=== PATIENT | male | born 1985 | race Caucasian/White ===

== ENCOUNTER 2016-08-06 20:08 | Emergency (ER) | payer SELFPAY ==
[~2016-08-06] VITALS: Ht 172.7 cm; Wt 65.8 kg
--- NOTE | 2016-08-06 20:23 | ED Cough/URI ---
General Chief Complaint: Respiratory Problems Stated Complaint: SOA Source: patient, family Exam Limitations: no limitations History of Present Illness Time seen by provider: 20:21 Initial Comments To ER accompanied by his mother who does most of the speaking for him. I'm able to elicit from the patient that he has shortness of breath that began yesterday. Yesterday was his 31th birthday and while at the table opening his birthday present he developed shortness of breath and tingling of his nose, top of his mouth. Those symptoms persist and today he has had weakness all over he states. No fevers or chills. No cough. He states that he smokes about a half a pack a day, has recently reduced his alcohol intake to only a few beers per day but does also smoke marijuana daily. Timing/Duration: constant Severity/Quality: no cough Associated Symptoms: shortness of breath Allergies and Home Medications Allergies Coded Allergies: No Known Drug Allergies (Unverified , 08/16/11) Home Medications No Active Prescriptions or Reported Meds Constitutional: see HPI EENTM: see HPI Respiratory: see HPI, cough Cardiovascular: no symptoms reported Genitourinary: no symptoms reported Musculoskeletal: no symptoms reported Skin: no symptoms reported Hematologic/Lymphatic: No Symptoms Reported Immunological/Allergic: no symptoms reported Past [place]-Bfkhpw-Gwkcif Hx Patient Social History Recent Foreign Travel: No Contact w/Someone Who Travel: No Seasonal Allergies Seasonal Allergies: No Surgeries HX Surgeries: Yes (GENITAL SURGERY) Respiratory Hx Respiratory Disorders: No Cardiovascular Hx Cardiac Disorders: No Neurological Hx Neurological Disorders: No Reproductive System Hx Reproductive Disorders: No Sexually Transmitted Disease: No Genitourinary Hx Genitourinary Disorders: No Gastrointestinal Hx Gastrointestinal Disorders: No Musculoskeletal Hx Musculoskeletal Disorders: No Endocrine Hx Endocrine Disorders: No HEENT HX ENT Disorders: No Cancer Hx Cancer: No Psychosocial Hx Psychiatric Problems: No Integumentary HX Skin/Integumentary Disorder: No Blood Transfusions Hx Blood Disorders: No Physical Exam Vital Signs Vital Sign - Last 12Hours 08/06/16 20:21 Temp 98.7 Pulse 66 Resp 18 B/P (MAP) 144/96 Pulse Ox 100 O2 Delivery Room Air Capillary Refill : General Appearance: WD/WN, no apparent distress Eyes: Bilateral Eye EOMI, Bilateral Eye Normal Inspection, Bilateral Eye PERRL HEENT: PERRL/EOMI, normal ENT inspection Neck: non-tender, full range of motion Respiratory: no respiratory distress, no accessory muscle use Cardiovascular: regular rate, rhythm Gastrointestinal: normal bowel sounds, non tender, soft Extremities: normal range of motion, non-tender Neurologic/Psychiatric: alert, normal mood/affect, oriented x 3 Skin: normal color, warm/dry Progress/Results/Core Measures Results/Orders Lab Results Laboratory Tests Test 08/06/16 20:33 Range/Units White Blood Count 7.2 4.3-11.0 10^3/uL Red Blood Count 4.91 4.35-5.85 10^6/uL Hemoglobin 14.5 13.3-17.7 G/DL Hematocrit 42 40-54 % Mean Corpuscular Volume 86 80-99 FL Mean Corpuscular Hemoglobin 30 25-34 PG Mean Corpuscular Hemoglobin Concent 34 32-36 G/DL Red Cell Distribution Width 12.9 10.0-14.5 % Platelet Count 213 130-400 10^3/uL Mean Platelet Volume 10.7 H 7.4-10.4 FL Neutrophils (%) (Auto) 40 L 42-75 % Lymphocytes (%) (Auto) 49 H 12-44 % Monocytes (%) (Auto) 7 0-12 % Eosinophils (%) (Auto) 4 0-10 % Basophils (%) (Auto) 1 0-10 % Neutrophils # (Auto) 2.9 1.8-7.8 X 10^3 Lymphocytes # (Auto) 3.5 1.0-4.0 X 10^3 Monocytes # (Auto) 0.5 0.0-1.0 X 10^3 Eosinophils # (Auto) 0.3 0.0-0.3 10^3/uL Basophils # (Auto) 0.1 0.0-0.1 10^3/uL D-Dimer 0.34 0.00-0.49 UG/ML My Orders Orders - FRANCISCO JAEGER APRN Fibrin Degradation Products (08/06/16 20:20) Cbc With Automated Diff (08/06/16 20:20) Comprehensive Metabolic Panel (08/06/16 20:20) Troponin I (08/06/16 20:20) Ekg Tracing (08/06/16 20:20) Continuous Ekg Monitoring (08/06/16 20:20) Chest Pa/Lat (2 View) (08/06/16 20:20) Alprazolam Tablet (Xanax Tablet) (08/06/16 20:30) Vital Signs/I&O Vital Sign - Last 12Hours 08/06/16 20:21 Temp 98.7 Pulse 66 Resp 18 B/P (MAP) 144/96 Pulse Ox 100 O2 Delivery Room Air Departure Impression Impression: Primary Impression: Shortness of breath Disposition: HOME, SELF-CARE Condition: Stable Departure-Patient Inst. Decision time for Depature: 21:03 Referrals: NO,LOCAL PHYSICIAN (PCP/Family) Primary Care Physician Patient Instructions: Shortness of Breath (Dyspnea) Add. Discharge Instructions: 1. Follow-up with your regular doctor next week. If you do not have one a list is been provided for you 2. Return to the emergency room for any fevers, cough or worsening symptoms All discharge instructions reviewed with patient and/or family. Voiced understanding. Scripts No Active Prescriptions or Reported Meds Work/School Note: Local Medical Staff Listing FRANCISCO JAEGER APRN Aug 06, 2016 20:23
[2016-08-06] MEDS ORDERED: ALPRAZolam 0.5 MG (XANAX) TAB PO SCH (20:30)
[2016-08-06 20:41] LABS: BASOPHILS # (AUTO) 0.1 10^3/uL (0.0-0.1); BASOPHILS % (AUTO) 1 % (0-10); EOSINOPHILS # (AUTO) 0.3 10^3/uL (0.0-0.3); EOSINOPHILS % (AUTO) 4 % (0-10); LYMPHOCYTES # (AUTO) 3.5 X 10^3 (1.0-4.0); LYMPHOCYTES % (AUTO) 49 % (12-44); MEAN CORPUSCULAR HEMOGLOBIN 30 PG (25-34); MEAN CORPUSCULAR HGB CONC 34 G/DL (32-36); MEAN CORPUSCULAR VOLUME 86 FL (80-99); MEAN PLATELET VOLUME 10.7 FL (7.4-10.4); MONOCYTES # (AUTO) 0.5 X 10^3 (0.0-1.0); MONOCYTES % (AUTO) 7 % (0-12); NEUTROPHILS # (AUTO) 2.9 X 10^3 (1.8-7.8); NEUTROPHILS % (AUTO) 40 % (42-75); PLATELET COUNT 213 10^3/uL (130-400); RED BLOOD COUNT 4.91 10^6/uL (4.35-5.85); RED CELL DISTRIBUTION WIDTH 12.9 % (10.0-14.5); WHITE BLOOD COUNT 7.2 10^3/uL (4.3-11.0)
--- NOTE | 2016-08-06 20:47 | Diagnostic Imaging Report ---
PA and lateral chest. INDICATION: Shortness of breath. Comparison is made with prior from August 16, 2011 FINDINGS: Lungs demonstrate no focal pulmonary infiltrates or evidence of an effusion. There is no pneumothorax. Heart size and mediastinal contours are appropriate. Pulmonary vascularity appears within normal limits. No acute osseous abnormality is demonstrated. IMPRESSION: No radiographic evidence of an acute cardiopulmonary process. Dictated by: Dictated on workstation # [id number]
[2016-08-06 21:05] LABS: ALANINE AMINOTRANSFERASE 23 U/L (0-55); ALBUMIN 4.1 G/DL (3.2-4.5); ANION GAP 8 MMOL/L (5-14); ASPARTATE AMINO TRANSFERASE 22 U/L (5-34); BILIRUBIN,TOTAL 0.3 MG/DL (0.1-1.0); BLOOD UREA NITROGEN 11 MG/DL (7-18); BUN/CREATININE RATIO 12; CARBON DIOXIDE 24 MMOL/L (21-32); CHLORIDE 109 MMOL/L (98-107); CREATININE SERUM 0.95 MG/DL (0.60-1.30); GFR ESTIMATED > 60; GLUCOSE 105 MG/DL (70-105); POTASSIUM 3.5 MMOL/L (3.6-5.0); SODIUM 141 MMOL/L (135-145); TOTAL PROTEIN 6.6 G/DL (6.4-8.2)
[2016-08-06 21:11] LABS: TROPONIN I < 0.30 NG/ML (<0.30)
[2016-08-06 21:27] VITALS: BP 127/81
--- OUTSIDE RECORDS SUMMARY | 2016-08-09 10:49 | XMS REPORT ---
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 Info Not Available Non Drug Allergy Problems Problem Type Condition Code Onset Dates Condition Status Assessment Strep pharyngitis J02.0 Active Medications Medication Code System Code Instructions Start Date End Date Status Dosage Amoxicillin [facility] [address]-98 500 MG Orally every 12 hrs Apr 22, 2015 May 02, 2015 1 tablet Procedures Procedure Coding System Code Date Office Visit, Est Pt., Level 3 CPT-4 05135 Apr 22, 2015 STREP A ASSAY W/OPTIC CPT-4 16538 Apr 22, 2015 Vital Signs Date/Time: Apr 22, 2015 Temperature 98 F Weight 175 lbs Height 71 in BMI 24.40 Index Blood Pressure Diastolic 78 mmHg Blood Pressure Systolic 128 mmHg Cardiac Monitoring Heart Rate 100 bpm Results Name Result Date Reference Range Unit Abnormality Flag STREP A (IN HOUSE) ----STREP A positive [id number] ----Control + [id number] ----Lot # [id number] ----Exp date 09/12/1620150422 Summary Purpose [employer] Submission
--- OUTSIDE RECORDS SUMMARY | 2016-08-09 10:49 | XMS REPORT | Continuity of Care Document ---
Author Author [facility] Organization [facility] Address Unknown Phone Unavailable Allergies Active Description Code Type Severity Reaction Onset Reported/Identified Relationship to Patient Clinical Status Yes No Known Drug Allergies [id number] Drug Allergy Unknown N/ A 08/16/2011 Medications Problems Date Dx Coded Attending Type Code Diagnosis Diagnosed By 08/16/2011 Ot 850.5 08/16/2011 Ot 919.0 08/16/2011 Ot 924.8 08/16/2011 Ot 959.01 08/16/2011 Ot E000.8 08/16/2011 Ot E815.2 06/09/2015 FRANCISCO JAEGER APRN Ot S63.501A 06/09/2015 FRANCISCO JAEGER APRN Ot W01.0XXA 06/09/2015 FRANCISCO JAEGER APRN Ot Y92.511 06/09/2015 FRANCISCO JAEGER APRN Ot Y99.8 Procedures Results Test Result Range Complete blood count (CBC) with automated white blood cell (WBC) differential - 08/06/16 20:33 Blood leukocytes automated count (number/volume) 7.2 10*3/ uL 4.3-11.0 Blood erythrocytes automated count (number/volume) 4.91 10*6 /uL 4.35-5.85 Venous blood hemoglobin measurement (mass/volume) 14.5 g/dL 13.3-17.7 Blood hematocrit (volume fraction) 42 % 40-54 Automated erythrocyte mean corpuscular volume 86 [foz_us] 80-99 Automated erythrocyte mean corpuscular hemoglobin (mass per erythrocyte) 30 pg 25-34 Automated erythrocyte mean corpuscular hemoglobin concentration measurement ( mass/volume) 34 g/dL 32-36 Automated erythrocyte distribution width ratio 12.9 % 10.0-14.5 Automated blood platelet count (count/volume) 213 10*3/uL 130-400 Automated blood platelet mean volume measurement 10.7 [foz_ us] 7.4-10.4 Automated blood neutrophils/100 leukocytes 40 % 42-75 Automated blood lymphocytes/100 leukocytes 49 % 12-44 Blood monocytes/100 leukocytes 7 % 0-12 Automated blood eosinophils/100 leukocytes 4 % 0-10 Automated blood basophils/100 leukocytes 1 % 0-10 Blood neutrophils automated count (number/volume) 2.9 10*3 1.8-7.8 Blood lymphocytes automated count (number/volume) 3.5 10*3 1.0-4.0 Blood monocytes automated count (number/volume) 0.5 10*3 0.0-1.0 Automated eosinophil count 0.3 10*3/uL 0.0-0.3 Automated blood basophil count (count/volume) 0.1 10*3/uL 0.0-0.1 Fibrin D-dimer FEU measurement in platelet poor plasma (mass/volume) - 20:33 Fibrin D-dimer FEU measurement in platelet poor plasma (mass/volume) 0.34 ug/mL 0.00-0.49 Comprehensive metabolic panel - 08/06/16 20:33 Serum or plasma sodium measurement (moles/volume) 141 mmol/ L 135-145 Serum or plasma potassium measurement (moles/volume) 3.5 mmol/L 3.6-5.0 Serum or plasma chloride measurement (moles/volume) 109 mmol /L 98-107 Carbon dioxide 24 mmol/L 21-32 Serum or plasma anion gap determination (moles/volume) 8 mmol/L 5-14 Serum or plasma urea nitrogen measurement (mass/volume) 11 mg/dL 7-18 Serum or plasma creatinine measurement (mass/volume) 0.95 mg /dL 0.60-1.30 Serum or plasma urea nitrogen/creatinine mass ratio 12 NRG Serum or plasma creatinine measurement with calculation of estimated glomerular filtration rate > NRG Serum or plasma glucose measurement (mass/volume) 105 mg/dL 70-105 Serum or plasma calcium measurement (mass/volume) 9.0 mg/dL 8.5-10.1 Serum or plasma total bilirubin measurement (mass/volume) 0.3 mg/dL 0.1-1.0 Serum or plasma alkaline phosphatase measurement (enzymatic activity/volume) 76 U/L 40-136 Serum or plasma aspartate aminotransferase measurement (enzymatic activity/ volume) 22 U/L 5-34 Serum or plasma alanine aminotransferase measurement (enzymatic activity/volume ) 23 U/L 0-55 Serum or plasma protein measurement (mass/volume) 6.6 g/dL 6.4-8.2 Serum or plasma albumin measurement (mass/volume) 4.1 g/dL 3.2-4.5 Serum or plasma troponin i.cardiac measurement (mass/volume) - 08/06/16 20:33 Serum or plasma troponin i.cardiac measurement (mass/volume) < ng/mL <0.30 Encounters ACCT No. Visit Date/Time Discharge Status Pt. Type Provider Facility Loc./Unit Complaint [id number] 06/09/2015 15:26:00 2015 17:18:00 DIS Emergency FRANCISCO JAEGER APRN [facility] ER [id number] 08/06/2016 20:42:00 Document Registration [id number] 08/16/2011 20:46:00 Document Registration
== END 2016-08-06 21:27 | disposition home or self-care (01) ==
LOC: EDUNIT# 20:08 → ER 20:10
DX: R06.02 Shortness of breath (principal); R53.1 Weakness; F17.210 Nicotine dependence, cigarettes, uncomplicated; F12.10 Cannabis abuse, uncomplicated
CPT/HCPCS: 36415; 71020; 80053; 84484; 85025; 85379; 93005

== ENCOUNTER 2019-03-27 08:18 | Emergency (ER) | payer SELFPAY ==
[~2019-03-27] VITALS: Ht 175 cm; Wt 77.0 kg
[2019-03-27] MEDS ORDERED: NS IV 1000 ML 1,000 ML IV SCH (11:19)
[2019-03-27] MEDS ORDERED: fentaNYL INJECTION 100 MCG/2 ML AMP ONE (11:22)
[2019-03-27 11:27] LABS: BASOPHILS % (AUTO) 0 % (0-10); EOSINOPHILS # (AUTO) 0.1 10^3/uL (0.0-0.3); EOSINOPHILS % (AUTO) 1 % (0-10); HEMATOCRIT 41 % (40-54); HEMOGLOBIN 13.8 G/DL (13.3-17.7); LYMPHOCYTES % (AUTO) 17 % (12-44); MEAN CORPUSCULAR HEMOGLOBIN 29 PG (25-34); MEAN CORPUSCULAR HGB CONC 34 G/DL (32-36); MEAN CORPUSCULAR VOLUME 86 FL (80-99); MEAN PLATELET VOLUME 9.9 FL (7.4-10.4); MONOCYTES # (AUTO) 0.7 X 10^3 (0.0-1.0); MONOCYTES % (AUTO) 6 % (0-12); NEUTROPHILS # (AUTO) 9.1 X 10^3 (1.8-7.8); NEUTROPHILS % (AUTO) 77 % (42-75); PLATELET COUNT 257 10^3/uL (130-400); RED CELL DISTRIBUTION WIDTH 13.5 % (10.0-14.5); WHITE BLOOD COUNT 11.8 10^3/uL (4.3-11.0)
--- NOTE | 2019-03-27 11:28 | ED Lower Extremity ---
General Chief Complaint: Lower Extremity Stated Complaint: L AND R ANKLE INJ Nursing Triage Note: pt states fall from garage roof, approx 8-9 feet, states landed on feet. complaint of genie foot pain. swelling noted left foot/ankle area. denies LOC, dizziness. denies knee pain. pt unable to walk. Nursing Sepsis Screen: No Definite Risk History of Present Illness Date Seen by Provider: Mar 27, 2019 Time Seen by Provider: 11:05 Initial Comments 33-year-old male was cleaning his chimney, he went off his roof, falling and landing on bilateral feet. He denies any head injury, loss of consciousness or back/neck pain. He is complaining mainly of left ankle and foot pain 10/10 and right ankle foot pain, to lesser extent. The injury occurred at 0730 this am. He denies taking any medication since the injury. No skin abrasions or lacerations. Last tetanus was within the last year. Onset: this morning (0730) Pain/Injury Location: bilateral foot (over calcaneus), bilateral ankle (Lateral malleoli bilat. ) Method of Injury: fell (8-9 feet from roof, landed on bilat feet, at 0730, unabel to bear weight on feet/ankle after this. ) Allergies and Home Medications Allergies Coded Allergies: No Known Drug Allergies (Unverified , 08/16/11) Home Medications Hydrocodone Bit/Acetaminophen 1 Tab Tab, 1-2 EACH PO Q6H PRN for PAIN-MODERATE Prescribed by: MICHELLE ROSE on 03/27/19 1353 Patient Home Medication List Home Medication List Reviewed: Yes Review of Systems Constitutional: no symptoms reported, see HPI EENTM: see HPI, no symptoms reported Respiratory: no symptoms reported, see HPI Cardiovascular: no symptoms reported, see HPI Genitourinary: no symptoms reported, see HPI Musculoskeletal: see HPI; No back pain; joint pain (bilateral ankles and feet), joint swelling (bilateral ankles); No muscle pain, No neck pain Skin: no symptoms reported, see HPI Psychiatric/Neurological: No Symptoms Reported, See HPI All Other Systems Reviewed Negative Unless Noted: Yes Past Hfigbxs-Xynbhb-Jruyol Hx Past Med/Social Hx: Reviewed Nursing Past Med/Soc Hx, Reviewed and Corrections made Patient Social History Alcohol Use: Denies Use (quit drinking approximately October 2017) Recreational Drug Use: Yes Drug of Choice: marijuana Smoking Status: Current Everyday Smoker (for smoking 4-5 times daily, however he denies using over the last week and) Recent Foreign Travel: No Contact w/Someone Who Travel: No Recent Infectious Disease Expo: No Recent Hopitalizations: No Physical Abuse: No Sexual Abuse: No Mistreated: No Seasonal Allergies Seasonal Allergies: No Past Medical History Reproductive Disorders: No Sexually Transmitted Disease: No Physical Exam Vital Signs Vital Signs - First Documented 03/27/19 09:27 Temp 36.5 Pulse 76 Resp 18 B/P (MAP) 138/89 (105) Pulse Ox 99 O2 Delivery Room Air Capillary Refill : Less Than 3 Seconds Height, Weight, BMI Height: 5'8.00" Weight: 145lbs. oz. 65.821355ta; 25.00 BMI Method:Stated General Appearance: WD/WN, mild distress (secondary to pain in bilateral lower extremities) HEENT: PERRL/EOMI, TMs normal, pharynx normal, other (multiple dental caries and decay throughout mouth) Neck: non-tender, full range of motion, supple, normal inspection Cardiovascular: normal peripheral pulses, regular rate, rhythm Respiratory: chest non-tender, lungs clear Gastrointestinal: normal bowel sounds, non tender, soft Hips: bilateral hip non-tender, bilateral hip normal inspection, bilateral hip normal range of motion, bilateral hip no evidence of injury Knees: bilateral knee non-tender, bilateral knee normal inspection, bilateral knee normal range of motion, bilateral knee no evidence of injury Ankles: bilateral ankle bone tenderness (distal fibula and calcani), bilateral ankle ecchymosis, bilateral ankle limited range of motion (secondary to pain), bilateral ankle pain, bilateral ankle soft tissue tenderness, bilateral ankle swelling (lateral greater than medial) Feet: bilateral foot pain, bilateral foot soft tissue tenderness (over calcaneus) Neurologic/Tendon: normal sensation, normal motor functions, normal tendon functions Neurologic/Psychiatric: no motor/sensory deficits, alert, normal mood/affect, oriented x 3 Skin: normal color, warm/dry Procedures/Interventions Splinting and Joint Reduction : Location: left ankle/foot Pre-Proc Neuro Vasc Exam: normal Post-Proc Neuro Vasc Exam: normal Splints: Air Stirrup [place] (riht ankle) Hand-Made Type: orthoglass Splint Application: Short Leg (Sugar tong and posterior splint) Progress/Results/Core Measures Results/Orders Lab Results Laboratory Tests Test 03/27/19 11:19 03/27/19 14:40 Range/Units White Blood Count 11.8 H 4.3-11.0 10^3/uL Red Blood Count 4.72 4.35-5.85 10^6/uL Hemoglobin 13.8 13.3-17.7 G/DL Hematocrit 41 40-54 % Mean Corpuscular Volume 86 80-99 FL Mean Corpuscular Hemoglobin 29 25-34 PG Mean Corpuscular Hemoglobin Concent 34 32-36 G/DL Red Cell Distribution Width 13.5 10.0-14.5 % Platelet Count 257 130-400 10^3/uL Mean Platelet Volume 9.9 7.4-10.4 FL Neutrophils (%) (Auto) 77 H 42-75 % Lymphocytes (%) (Auto) 17 12-44 % Monocytes (%) (Auto) 6 0-12 % Eosinophils (%) (Auto) 1 0-10 % Basophils (%) (Auto) 0 0-10 % Neutrophils # (Auto) 9.1 H 1.8-7.8 X 10^3 Lymphocytes # (Auto) 2.0 1.0-4.0 X 10^3 Monocytes # (Auto) 0.7 0.0-1.0 X 10^3 Eosinophils # (Auto) 0.1 0.0-0.3 10^3/uL Basophils # (Auto) 0.0 0.0-0.1 10^3/uL Sodium Level 140 135-145 MMOL/L Potassium Level 3.6 3.6-5.0 MMOL/L Chloride Level 104 98-107 MMOL/L Carbon Dioxide Level 26 21-32 MMOL/L Anion Gap 10 5-14 MMOL/L Blood Urea Nitrogen 11 7-18 MG/DL Creatinine 0.95 0.60-1.30 MG/DL Estimat Glomerular Filtration Rate > 60 BUN/Creatinine Ratio 12 Glucose Level 99 70-105 MG/DL Calcium Level 10.4 H 8.5-10.1 MG/DL Corrected Calcium 8.5-10.1 MG/DL Total Bilirubin 0.4 0.1-1.0 MG/DL Aspartate Amino Transf (AST/SGOT) 25 5-34 U/L Alanine Aminotransferase (ALT/SGPT) 38 0-55 U/L Alkaline Phosphatase 73 40-136 U/L Total Protein 8.3 H 6.4-8.2 GM/DL Albumin 5.1 H 3.2-4.5 GM/DL Urine Color YELLOW Urine Clarity CLEAR Urine pH 6.5 5-9 Urine Specific [place] 1.010 L 1.016-1.022 Urine Protein NEGATIVE NEGATIVE Urine Glucose (UA) NEGATIVE NEGATIVE Urine Ketones NEGATIVE NEGATIVE Urine Nitrite NEGATIVE NEGATIVE Urine Bilirubin NEGATIVE NEGATIVE Urine Urobilinogen 0.2 < = 1.0 MG/DL Urine Leukocyte Esterase NEGATIVE NEGATIVE Urine RBC (Auto) NEGATIVE NEGATIVE Urine RBC NONE /HPF Urine WBC RARE /HPF Urine Squamous Epithelial Cells NONE /HPF Urine Crystals NONE /LPF Urine Bacteria NEGATIVE /HPF Urine Casts NONE /LPF Urine Mucus SMALL H /LPF Urine Culture Indicated NO Urine Opiates Screen NEGATIVE NEGATIVE Urine Oxycodone Screen NEGATIVE NEGATIVE Urine Methadone Screen NEGATIVE NEGATIVE Urine Propoxyphene Screen NEGATIVE NEGATIVE Urine Barbiturates Screen NEGATIVE NEGATIVE Ur Tricyclic Antidepressants Screen NEGATIVE NEGATIVE Urine Phencyclidine Screen NEGATIVE NEGATIVE Urine Amphetamines Screen POSITIVE H NEGATIVE Urine Methamphetamines Screen POSITIVE H NEGATIVE Urine Benzodiazepines Screen NEGATIVE NEGATIVE Urine Cocaine Screen NEGATIVE NEGATIVE Urine Cannabinoids Screen POSITIVE H NEGATIVE My Orders Orders - MICHELLE ROSE [employer] Ct Thoracic/Lumbar Spine Wo (03/27/19 11:19) Ct Cervical Spine Wo (03/27/19 11:19) Cbc With Automated Diff (03/27/19 11:19) Comprehensive Metabolic Panel (03/27/19 11:19) Drug Screen Stat (Urine) (03/27/19 11:19) Ua Culture If Indicated (03/27/19 11:19) Ed Iv/Invasive Line Start (03/27/19 11:19) Ns Iv 1000 Ml (Sodium Chloride 0.9%) (03/27/19 11:19) Fentanyl Injection (Sublimaze Injection (03/27/19 11:30) Ankle, Bilateral, 3 Views (03/27/19 11:19) Foot, Bilateral, 3 View (03/27/19 11:19) Fentanyl Injection (Sublimaze Injection (03/27/19 11:22) Tibia/Fibula, Bilateral, 2view (03/27/19 11:19) Hydrocodone/Apap 7.5/325 Tab (Lortab 7. (03/27/19 13:45) Medications Given in ED Current Medications Medications Dose Ordered Sig/Kirill Route Start Time Stop Time Status Last Admin Dose Admin Acetaminophen/ Hydrocodone Bitart 1 ea ONCE ONCE PO 03/27/19 13:45 03/27/19 13:46 DC 03/27/19 13:46 1 EA Fentanyl Citrate 50 mcg ONCE ONCE IVP 03/27/19 11:30 03/27/19 11:31 DC 03/27/19 11:28 50 MCG Vital Signs/I&O 03/27/19 03/27/19 09:27 15:05 Temp 36.5 36.5 Pulse 76 70 Resp 18 18 B/P (MAP) 138/89 (105) 139/74 (105) Pulse Ox 99 98 O2 Delivery Room Air Blood Pressure Mean: 105 POS Progress Progress Note : Time: 11:05 Progress Note Patient seen and evaluated, will obtain labs, CT of cervical, thoracic and lumbar spine. X-rays bilateral ankles, feet and tib-fib. IV normal saline 1 L, fentanyl 50 g for pain. He'll remain nothing by mouth. Notified Drs. Briscoe and Zurdo of assessment, injury and plan of care, no further recommendations at this time. 1200 x-rays show left calcaneal fracture, no other acute injuries. Patient neurovascular status is intact bilateral lower extremities. 1230 patient complaining of pain rating at 7/10, will give hydrocodone/APAP 7.5/325 mg orally. X-ray reviewed with Dr. Day, recommended splinting, non- weight bearing and follow up with Dr. Casillas. 1315 sugar tong and posterior splint applied to left lower extremity. Aircast to right lower extremity. Spoke to Dr. Hopper about patient, no further recommendations at this time. Awaiting UA, to assure no hematuria. 1400 neurovascular status has remained intact bilateral lower extremities. Patient continues to have no abdominal, chest or back/neck pain. 1415 UA negative for hematuria, urine drug screen positive for cannabinoids, methamphetamines and amphetamines. Discharge instructions and return precautions reviewed with the patient. Diagnostic Imaging Diagonstic Imaging: Xray Plain Films/CT/US/NM/MRI: ankle Comments NAME: KISHAN NIEEVS MED REC#: [id number] PT STATUS: REG ER : 1985 PHYSICIAN: MICHELLE ROSE ADMIT DATE: 03/27/19/ER Draft POSDate of Exam:03/27/19 ANKLE, BILATERAL, 3 VIEWS INDICATION: Fall from garage roof. Injury. Pain. COMPARISON: None. FINDINGS: Right ankle:3 views of the right ankle were obtained and show no fractures, dislocations, or other acute bony abnormalities. Joint spaces are well maintained throughout. The soft tissues appear unremarkable. No radiopaque foreign bodies are identified. Left ankle: There is moderate asymmetric lateral soft tissue swelling of the left ankle. Lateral view demonstrates oblique oriented fracture of the calcaneus. Fracture line extends from the subtalar joint inferiorly and posteriorly towards the posterior inferior margins of the calcaneus. There is no significant displacement of fracture fragments. No radiopaque foreign bodies are identified. Joint spaces are maintained. IMPRESSION: 1. Acute fracture of the left calcaneus as described above. 2. No acute fracture or dislocation of the right ankle. Dictated on workstation # [id number] Dict: 03/27/19 1243 Trans: 03/27/19 1248 [facility] [id number] Interpreted by: GITA JESSICA MD Electronically signed by: Reviewed: Reviewed by Ct Diagonstic Imaging: CT Plain Films/CT/US/NM/MRI: c-spine Comments NAME: KISHAN NIEVES Kyle MED REC#: [id number] PT STATUS: REG ER : 1985 PHYSICIAN: MICHELLE ROSE ADMIT DATE: 03/27/19/ER Signed POSDate of Exam: 03/27/19 CT CERVICAL SPINE WO EXAMINATION: CT cervical spine without contrast. TECHNIQUE: Multiple contiguous axial images were obtained through the cervical spine without the use of intravenous contrast. Sagittal and coronal reformations through the cervical spine were then performed. All CT scans use one or more of the following dose optimizing techniques: automated exposure control, MA and/or KvP adjustment based on a patient size and exam type, or iterative reconstruction. HISTORY: Fall COMPARISON: 08/16/2011 FINDINGS: The alignment of the cervical spine is normal. No fracture is seen. Vertebral body heights are normal. The craniocervical junction is normal. Disc heights are normal. Facet and uncovertebral joints are normal. There is no osseus spinal canal stenosis. No soft tissue abnormality is seen in the neck. Limited views of the superior thorax are normal. IMPRESSION: 1. No cervical spine fracture. Reviewed: Reviewed by Ct Diagonstic Imaging: CT Plain Films/CT/US/NM/MRI: other (thoracic and lumbar spine) Comments NAME: KISHAN NIEVES JR [facility] REC#: [id number] PT STATUS: REG ER : 1985 PHYSICIAN: MICHELLE ROSE ADMIT DATE: 03/27/19/ER Draft POSDate of Exam:03/27/19 CT THORACIC/LUMBAR SPINE WO CLINICAL INDICATION: Patient fell off roof landing on feet. No complaints of spine pain. EXAM: Axial CT scan of the thoracic and lumbar spine performed without IV contrast. Sagittal and coronal reformations were performed. Bone and soft tissue windows were created. Auto Exposure Controls were utilized during the CT exam to meet ALARA standards for radiation dose reduction. COMPARISON: None. FINDINGS: There is no acute thoracic or lumbar fracture or dislocation. The thoracic and lumbar spines have normal alignment. There are small spurs seen throughout the thoracic and lumbar spine. There is no significant bony central canal or neuroforaminal narrowing. The visualized extrathoracic and lumbar soft tissue structures are unremarkable. IMPRESSION: There is no acute thoracic spine or lumbar spine fracture and no dislocation. Dictated on workstation # [id number] Dict: 03/27/19 1211 Trans: 03/27/19 1219 [id number] Interpreted by: ROXANA OTERO MD Electronically signed by: Reviewed: Reviewed by Ct Diagonstic Imaging: Xray Plain Films/CT/US/NM/MRI: other (tib fib) Comments NAME: KISHAN NIEVES JR [facility] REC#: [id number] PT STATUS: REG ER : 1985 PHYSICIAN: MICHELLE ROSE ADMIT DATE: 03/27/19/ER Draft POSDate of Exam:03/27/19 TIBIA/FIBULA, BILATERAL, 2VIEW INDICATION: Fall. Knee pain. COMPARISON: None. FINDINGS: Right tibia-fibula: 4 radiographic views of the right tibia and fibula demonstrate no acute fracture or dislocation. No focal osseous lesions are seen. No significant joint effusion is seen. The surrounding soft tissue structures are unremarkable. There are no radiopaque foreign bodies. Left tibia-fibula: Multiple radiographic views of the left tibia and fibula were also obtained. There is mild lateral soft tissue swelling at the left ankle. Comminuted fracture of the left calcaneus is again identified. This is better visualized on dedicated ankle and foot radiographs from same day. Left tibia and fibula are intact without evidence acute fracture or dislocation. No unexpected radiopaque foreign bodies are seen. IMPRESSION: 1. No acute fracture or dislocation of the tibia or fibula on either side. 2. Redemonstration of an acute comminuted left calcaneal fracture. Dictated on workstation # [id number] Dict: 03/27/19 1255 Trans: 03/27/[address] [place] [address] [id number] Interpreted by: GITA JESSICA MD Electronically signed by: Reviewed: Reviewed by Me Plain Films/CT/US/NM/MRI: other (foot) Comments NAME: NIEVESKISHAN MED REC#: [id number] PT STATUS: REG ER : 1985 PHYSICIAN: MICHELLE ROSE ADMIT DATE: 03/27/19/ER Draft POSDate of Exam:03/27/19 FOOT, BILATERAL, 3 VIEW INDICATION: Fall from roof. COMPARISON: Ankle radiographs from same day. FINDINGS: Right foot: Three views of the right foot demonstrate no acute fracture or dislocation. There are no focal osseous lesions. There is no soft tissue swelling. Joint spaces are well maintained. No radiopaque foreign bodies are seen. Left foot: There is acute comminuted fracture of the calcaneus. Fracture lines involve the subtalar region as well as extending into the superior and inferior margins of the posterior calcaneus. There is significant flattening of Boehler's angle with compression of the superior portion of the calcaneus. No unexpected radiopaque foreign bodies are seen. Moderate soft tissue swelling is noted. IMPRESSION: 1. Acute comminuted impacted fracture of the left calcaneus. 2. No evidence of acute fracture or dislocation of the right foot. Dictated on workstation # [id number] Dict: 03/27/19 1246 Trans: 03/27/19 1254 [facility] [id number] Interpreted by: GITA JESSICA MD Electronically signed by: Reviewed: Reviewed by Me, Reviewed/Discussed (with Dr. Day) Departure Impression Primary Impression: Fall from roof as cause of accidental injury Additional Impressions: Ankle sprain Qualified Codes: S93.499A - Sprain of other ligament of unspecified ankle, initial encounter Calcaneal fracture Qualified Codes: S92.015A - Nondisplaced fracture of body of left calcaneus, initial encounter for closed fracture Disposition: HOME, SELF-CARE Condition: Stable Departure-Patient Inst. Decision time for Depature: 14:15 Referrals: PETER CASILLAS DPM NO,LOCAL PHYSICIAN (PCP) Primary Care Physician Patient Instructions: Ankle Sprain (DC), Heel Fracture (DC) Add. Discharge Instructions: Strict non-weightbearing on the left lower extremity. may use crutches, if able to bear weight on right foot or use wheel chair. Wiggle toes to left foot. Leave splint on at all times, to left ankle/foot. If significant swelling, may loosen jeyson wrap. Jeyson wrap to right ankle, gentle Range of Motion. Ice 20 min every 2 hours and elevate both ankles/feet, continuously. Call Dr. Casillas's office for follow up: [phone] take your CD with x-ray studies. Use your pain medication as prescribed. Return to the emergency department for new, urgent health care needs. All discharge instructions reviewed with patient and/or family. Voiced understanding. Scripts Hydrocodone Bit/Acetaminophen (Hydrocodone/Acetaminophen 5/325mg Tablet) 1 Tab Tab 1-2 EACH PO Q6H PRN for PAIN-MODERATE MDD 10, #30 TAB 0 Refills Prov: MICHELLE ROSE 03/27/19 Wheelchair (Wheelchair) 1 Each Each EACH MC DAILY for fracture, #1 0 Refills Prov: MICHELLE ROSE 03/27/19 Copy Copies To 1: PETER CASILLAS DPM; ANTOINETTE DAY MD Copies To 2: CASI HOPPER AMY ARNP Mar 27, 2019 11:28 POS
[2019-03-27] MEDS ORDERED: fentaNYL INJECTION 100 MCG/2 ML AMP IVP ONE (11:30)
[2019-03-27 11:47] LABS: ALANINE AMINOTRANSFERASE 38 U/L (0-55); ALBUMIN 5.1 GM/DL (3.2-4.5); ALKALINE PHOSPHATASE 73 U/L (40-136); BILIRUBIN,TOTAL 0.4 MG/DL (0.1-1.0); BUN/CREATININE RATIO 12; CALCIUM 10.4 MG/DL (8.5-10.1); CARBON DIOXIDE 26 MMOL/L (21-32); CHLORIDE 104 MMOL/L (98-107); CREATININE SERUM 0.95 MG/DL (0.60-1.30); GFR ESTIMATED > 60; GLUCOSE 99 MG/DL (70-105); POTASSIUM 3.6 MMOL/L (3.6-5.0); SODIUM 140 MMOL/L (135-145); TOTAL PROTEIN 8.3 GM/DL (6.4-8.2)
--- NOTE | 2019-03-27 11:58 | Diagnostic Imaging Report ---
EXAMINATION: CT cervical spine without contrast. TECHNIQUE: Multiple contiguous axial images were obtained through the cervical spine without the use of intravenous contrast. Sagittal and coronal reformations through the cervical spine were then performed. All CT scans use one or more of the following dose optimizing techniques: automated exposure control, MA and/or KvP adjustment based on a patient size and exam type, or iterative reconstruction. HISTORY: Fall COMPARISON: 08/16/2011 FINDINGS: The alignment of the cervical spine is normal. No fracture is seen. Vertebral body heights are normal. The craniocervical junction is normal. Disc heights are normal. Facet and uncovertebral joints are normal. There is no osseus spinal canal stenosis. No soft tissue abnormality is seen in the neck. Limited views of the superior thorax are normal. IMPRESSION: 1. No cervical spine fracture. Dictated by: Dictated on workstation # [id number]
--- NOTE | 2019-03-27 12:20 | Diagnostic Imaging Report ---
CLINICAL INDICATION: Patient fell off roof landing on feet. No complaints of spine pain. EXAM: Axial CT scan of the thoracic and lumbar spine performed without IV contrast. Sagittal and coronal reformations were performed. Bone and soft tissue windows were created. Auto Exposure Controls were utilized during the CT exam to meet ALARA standards for radiation dose reduction. COMPARISON: None. FINDINGS: There is no acute thoracic or lumbar fracture or dislocation. The thoracic and lumbar spines have normal alignment. There are small spurs seen throughout the thoracic and lumbar spine. There is no significant bony central canal or neuroforaminal narrowing. The visualized extrathoracic and lumbar soft tissue structures are unremarkable. IMPRESSION: There is no acute thoracic spine or lumbar spine fracture and no dislocation. Dictated by: Dictated on workstation # [id number]
--- NOTE | 2019-03-27 12:48 | Diagnostic Imaging Report ---
INDICATION: Fall from garage roof. Injury. Pain. COMPARISON: None. FINDINGS: Right ankle:3 views of the right ankle were obtained and show no fractures, dislocations, or other acute bony abnormalities. Joint spaces are well maintained throughout. The soft tissues appear unremarkable. No radiopaque foreign bodies are identified. Left ankle: There is moderate asymmetric lateral soft tissue swelling of the left ankle. Lateral view demonstrates acute comminuted fractures of the calcaneus. Fracture lines involve the subtalar region as well as the superior and inferior margins of the posterior calcaneus. There is significant impaction of the calcaneus with diminished Boehler's angles. No radiopaque foreign bodies are identified. Joint spaces are maintained. IMPRESSION: 1. Acute fracture of the left calcaneus as described above. 2. No acute fracture or dislocation of the right ankle. Dictated by: Dictated on workstation # [id number]
--- NOTE | 2019-03-27 12:55 | Diagnostic Imaging Report ---
INDICATION: Fall from roof. COMPARISON: Ankle radiographs from same day. FINDINGS: Right foot: Three views of the right foot demonstrate no acute fracture or dislocation. There are no focal osseous lesions. There is no soft tissue swelling. Joint spaces are well maintained. No radiopaque foreign bodies are seen. Left foot: There is acute comminuted fracture of the calcaneus. Fracture lines involve the subtalar region as well as extending into the superior and inferior margins of the posterior calcaneus. There is significant flattening of Boehler's angle with compression of the superior portion of the calcaneus. No unexpected radiopaque foreign bodies are seen. Moderate soft tissue swelling is noted. IMPRESSION: 1. Acute comminuted impacted fracture of the left calcaneus. 2. No evidence of acute fracture or dislocation of the right foot. Dictated by: Dictated on workstation # [id number]
--- NOTE | 2019-03-27 13:00 | Diagnostic Imaging Report ---
INDICATION: Fall. Knee pain. COMPARISON: None. FINDINGS: Right tibia-fibula: 4 radiographic views of the right tibia and fibula demonstrate no acute fracture or dislocation. No focal osseous lesions are seen. No significant joint effusion is seen. The surrounding soft tissue structures are unremarkable. There are no radiopaque foreign bodies. Left tibia-fibula: Multiple radiographic views of the left tibia and fibula were also obtained. There is mild lateral soft tissue swelling at the left ankle. Comminuted fracture of the left calcaneus is again identified. This is better visualized on dedicated ankle and foot radiographs from same day. Left tibia and fibula are intact without evidence acute fracture or dislocation. No unexpected radiopaque foreign bodies are seen. IMPRESSION: 1. No acute fracture or dislocation of the tibia or fibula on either side. 2. Redemonstration of an acute comminuted left calcaneal fracture. Dictated by: Dictated on workstation # [id number]
[2019-03-27] MEDS ORDERED: HYDROcodone/APAP 7.5 MG/325 MG (LORTAB, LORCET PLUS) TABLET PO ONE (13:45)
[2019-03-27] MEDS ORDERED: WHEE1EAC3 MC (13:53)
[2019-03-27] MEDS ORDERED: ACHD5005 PO (13:53)
[2019-03-27 14:48] LABS: BILIRUBIN,URINE NEGATIVE (NEGATIVE); CLARITY,URINE CLEAR; COLOR,URINE YELLOW; GLUCOSE, URINE (UA) NEGATIVE (NEGATIVE); KETONES,URINE NEGATIVE (NEGATIVE); LEUKOCYTE ESTERASE ,URINE NEGATIVE (NEGATIVE); NITRITE,URINE NEGATIVE (NEGATIVE); PH,URINE 6.5 (5-9); PROTEIN,URINE NEGATIVE (NEGATIVE)
[2019-03-27 14:54] LABS: BACTERIA,URINE NEGATIVE /HPF; WBC,URINE RARE /HPF
[2019-03-27 15:00] LABS: AMPHETAMINE SCREEN, URINE POSITIVE (NEGATIVE); BENZODIAZEPINES SCREEN URINE NEGATIVE (NEGATIVE); CANNABINOID SCREEN, URINE POSITIVE (NEGATIVE); COCAINE SCREEN URINE NEGATIVE (NEGATIVE); METHAMPHETAMINE SCREEN URINE S POSITIVE (NEGATIVE)
[2019-03-27 15:01] LABS: BARBITURATE SCREEN URINE NEGATIVE (NEGATIVE); METHADONE STAT NEGATIVE (NEGATIVE); OPIATE SCREEN URINE NEGATIVE (NEGATIVE); OXYCODONE STAT NEGATIVE (NEGATIVE); PROPOXYPHENE STAT NEGATIVE (NEGATIVE); TRICYCLIC ANTIDEPRESSANTS SCRE NEGATIVE (NEGATIVE)
[2019-03-27 15:05] VITALS: BP 139/74
== END 2019-03-27 15:05 | disposition home or self-care (01) ==
LOC: EDUNIT# 08:18 → ER 08:19
DX: S92.015A Nondisplaced fracture of body of left calcaneus, initial encounter for closed fracture (principal); S93.491A Sprain of other ligament of right ankle, initial encounter; F17.200 Nicotine dependence, unspecified, uncomplicated; W13.2XXA Fall from, out of or through roof, initial encounter
CPT/HCPCS: 29515; 36415; 72125; 72128; 72131; 80053; 80306; 81000; 85025

== ENCOUNTER → 2019-04-03 | Outpatient (CLI) | payer OTHER ==
[~2019-04-03] MED LIST: ACHD5005 PO; OXYC1TAB12 PO; WHEE1EAC3 MC
--- NOTE | 2019-04-03 18:22 | Diagnostic Imaging Report ---
Exam: CT left ankle without contrast. DATE: April 03, 2019. INDICATION: 33-year-old male, fall off roof one week ago. Evaluation of calcaneal fracture. COMPARISON: Radiographs March 27, 2019. TECHNIQUE: Axial CT images at the level of the left ankle were obtained without contrast. Coronal and sagittal reformats were obtained and provided. All CT scans use one or more of the following dose optimizing techniques: automated exposure control, MA and/or KvP adjustment based on a patient size and exam type, or iterative reconstruction. FINDINGS: There is a severely comminuted displaced calcaneal fracture. There is generalized medial to lateral splaying of fracture fragments. There is intra-articular fracture involvement of the posterior calcaneal facet. There is loss of normal alignment of the posterior subtalar joint with widening of the posterior subtalar joint perhaps best illustrated on sagittal image 19 and adjacent sequential images. There is also intra-articular fracture extension involving the middle calcaneal facet without offset of the articulating surface at this location. There is normal alignment of the anterior subtalar joint. The calcaneal fracture also extends to involve the superior calcaneus and the posterior calcaneus near the level of the Achilles tendon insertion. There is fracture extension within the sinus Tarsi including in the region of the attachment site of the intraosseous ligament. There is no fracture involvement of the articulating surface of the calcaneocuboid articulation. The fracture is involving the lateral calcaneus anterior to the peroneal tubercle. There is a type II os navicularis. There is no additionally identified acute fracture. The talar dome is intact. There is abnormal high attenuation in the common peroneal tendon sheath likely relating to blood products. There is no identified tendon entrapment. There is diffuse subcutaneous edema. IMPRESSION: 1. Severely comminuted displaced fracture of the calcaneus as described extensively above. There is intra-articular fracture involvement of the posterior and middle calcaneal facets. There is abnormal alignment of the posterior subtalar joint. 2. No identified tendon entrapment. Dictated by: Dictated on workstation # [id number]
== END ==
LOC: RAD 14:23
PROVIDERS: ATTEND Podiatrist
DX: S92.062A Displaced intraarticular fracture of left calcaneus, initial encounter for closed fracture (principal); W13.2XXA Fall from, out of or through roof, initial encounter
CPT/HCPCS: 73700

== ENCOUNTER 2019-04-04 05:36 | Outpatient (CLI) | payer OTHER ==
[~2019-04-04] VITALS: Ht 182.9 cm; Wt 77.3 kg
[~2019-04-04 05:36] MED LIST changes: -OXYC1TAB12 PO
[2019-04-05] MEDS ORDERED: OXYC1TAB12 PO (14:38)
== END 2019-04-04 11:47 | disposition home or self-care (01) ==
LOC: PREOP 05:36
PROVIDERS: ATTEND Podiatrist
DX: Z01.818 Encounter for other preprocedural examination (principal)